=== PATIENT | male | born 1960 | race Caucasian/White ===

== ENCOUNTER 2017-02-28 10:23 | Emergency (ER) | payer MEDICARE, MEDICAID ==
[~2017-02-28] VITALS: Ht 157.5 cm; Wt 222.0 kg
[~2017-02-28 10:23] MED LIST: ATOR40TA3 PO; CARI350T27 PO; CLIN150C2 PO; FA/M1TAB PO; FEBU40TA PO; FURO-149 PO; GABA600T2 PO; GLIP5TAB13 PO; HYDR-3972 PO; LEVO175T7 PO; LEVO750T21 PO; NAPR500T4 PO; PIOG30TA10 PO; SAXA2.5T PO; SERT100T PO; [UNRECOGNIZED DRUG - OTHER] PO
[2017-02-28] MEDS ORDERED: LIDOcaine 1% (10mg/ml)/PF 5ml amp IJ ONE (12:10)
[2017-02-28] MEDS ORDERED: amoxicillin 250mg capsule PO ONE (12:10)
[2017-02-28] MEDS ORDERED: ondansetron 4mg rapidly disintigrating tab PO ONE (12:10)
[2017-02-28] MEDS ORDERED: LIDOcaine 1% 30ml vial IJ ONE (12:10)
[2017-02-28] MEDS ORDERED: HYDROcodone/acetaminophen 5mg/325mg tablet PO ONE (12:10)
[2017-02-28] MEDS ORDERED: AMOX500C2 PO (13:01)
[2017-02-28] MEDS ORDERED: HYDR-3965 PO (13:01)
[2017-02-28 13:10] VITALS: BP 153/118
== END 2017-02-28 13:11 | disposition home or self-care (01) ==
LOC: ER 10:23
DX: K08.89 Other specified disorders of teeth and supporting structures (principal); I50.9 Heart failure, unspecified; E11.9 Type 2 diabetes mellitus without complications; E07.9 Disorder of thyroid, unspecified; M10.9 Gout, unspecified; Z79.899 Other long term (current) drug therapy
CPT/HCPCS: 41800; 99284; J3490

== ENCOUNTER 2017-05-28 00:05 | Emergency (ER) | payer MEDICARE, OTHER ==
[~2017-05-28] VITALS: Ht 172.7 cm; Wt 229.6 kg
[~2017-05-28 00:05] MED LIST changes: +NAPR-996 PO; -NAPR500T4 PO
[2017-05-28] MEDS ORDERED: ceFAZolin 1GM/D5W- ADD-VANTAGE 50 ML IV ONE (00:45)
[2017-05-28] MEDS ORDERED: normal saline 1000ML IV soln IV ONE (00:45)
[2017-05-28] MEDS ORDERED: doxycycline inj 100 MG in normal saline 100ml IV soln 100 ML IV SCH (00:52)
[2017-05-28] MEDS ORDERED: ondansetron 4mg rapidly disintigrating tab PO ONE ×2 (01:15→01:20)
[2017-05-28] MEDS ORDERED: doxycycline hyclate 100mg tablet.DR PO ONE (01:15)
[2017-05-28] MEDS ORDERED: bacitracin 15gm ointment TP ONE (01:35)
[2017-05-28 02:50] LABS: BASOPHILS % (AUTO) 0.5 % (0-1); EOSINOPHILS # (AUTO) 0.4 X10'3 (0-0.9); EOSINOPHILS % (AUTO) 4.1 % (0-6); HEMATOCRIT 41.4 % (42.0-52.0); HEMOGLOBIN 13.7 g/dl (14.0-17.9); LYMPHOCYTES # (AUTO) 1.8 X10'3 (1.1-4.8); LYMPHOCYTES % (AUTO) 18.8 % (21-51); MEAN CORPUSCULAR HEMOGLOBIN 29.7 PG (27.0-31.0); MEAN PLATELET VOLUME 7.1 FL (7.4-10.4); MONOCYTES # (AUTO) 0.6 X10'3 (0-0.9); MONOCYTES % (AUTO) 6.3 % (2-12); NEUTROPHILS # (AUTO) 6.7 X10'3 (1.8-7.7); NEUTROPHILS % (AUTO) 70.3 % (42-75); PLATELET COUNT 388 X10'3 (140-440); RED CELL DISTRIBUTION WIDTH 16.6 % (11.5-14.5); WHITE BLOOD COUNT 9.5 X10'3 (4.5-11.0)
[2017-05-28 02:52] LABS: PARTIAL THROMBOPLASTIN TIME 32 SECONDS (22-32)
[2017-05-28 03:08] LABS: ALANINE AMINOTRANSFERASE 67 U/L (12-78); ALBUMIN 3.5 G/DL (3.4-5.0); ALBUMIN/GLOBULIN RATIO 0.7 (1.1-1.5); ALKALINE PHOSPHATASE 74 IU/L (46-116); ANION GAP 15 (8-16); ASPARTATE AMINO TRANSFERASE 71 U/L (10-37); BILIRUBIN,TOTAL 0.2 MG/DL (0.1-1.0); BLOOD UREA NITROGEN 24 MG/DL (7-18); BUN/CREATININE RATIO 22.4 (5.4-32.0); CALCIUM 9.1 MG/DL (8.5-10.1); CHLORIDE 97 MMOL/L (99-107); CREATININE 1.07 MG/DL (0.60-1.10); GLUCOSE 97 MG/DL (70-104); MAGNESIUM 2.1 MG/DL (1.5-2.4); POTASSIUM 3.7 MMOL/L (3.5-5.1); SODIUM 141 MMOL/L (135-145); TOTAL CARBON DIOXIDE 29.4 MMOL/L (24-32); TOTAL PROTEIN 8.3 G/DL (6.4-8.2); eGFR 72 ML/MIN
[2017-05-28 04:04] VITALS: BP 126/85
[2017-05-28] MEDS ORDERED: DOXY100C43 PO (04:13)
[2017-05-28] MEDS ORDERED: CEPH250T PO (04:13)
[2017-05-28 04:35] LABS: CLARITY,URINE CLEAR (Clear); COLOR,URINE YELLOW (Yellow); GLUCOSE, URINE NEGATIVE (Neg); KETONES,URINE NEGATIVE (Neg); LEUKOCYTE ESTERASE ,URINE NEGATIVE (Neg); NITRITES, URINE NEGATIVE (Neg); OCCULT BLOOD,URINE NEGATIVE (Neg); PROTEIN,URINE 30 mg/dl (Neg); UROBILINOGEN,URINE 0.2 E.U/dL (0.2-1.0)
[2017-05-28 04:38] LABS: UA COLLECTION TYPE CLN CATCH MIDSTREAM
[2017-05-28 04:50] LABS: BACTERIA,URINE NONE SEEN /HPF (Neg); MUCUS STRANDS NONE SEEN /LPF (Neg); RBC,URINE 0-2 /HPF (0-2); SQUAMOUS EPITHELIAL CELL,UR FEW /LPF (FEW); WBC,URINE 0-4 /HPF (0-4)
== END 2017-05-28 04:45 | disposition home or self-care (01) ==
LOC: ER 00:05
DX: L03.115 Cellulitis of right lower limb (principal); E11.9 Type 2 diabetes mellitus without complications; I50.9 Heart failure, unspecified; M10.9 Gout, unspecified; Z98.890 Other specified postprocedural states; Z79.899 Other long term (current) drug therapy
CPT/HCPCS: 36415; 80053; 81001; 83735; 84145; 85025; 85610; 85730; 87040; 87070; 87077; 87186; 93005; 96365; 99285; A6255; J0690; J7030; 83605; J3490